=== PATIENT | female | born 1990 | race Caucasian/White ===

== ENCOUNTER → 2018-11-11 | Outpatient (CLI) | payer BC ==
[~2018-11-11] MED LIST: LIDOCAINE 1% PF 30 ML VIAL. ONE
[2018-11-11 16:01] LABS: CSF PROTEIN 19.1 mg/dL (15.0-45.0)
[2018-11-11 16:22] LABS: CSF CLARITY CLEAR; CSF COLOR COLORLESS; CSF RBC COUNT 4; CSF WBC COUNT 4
[2018-11-11 16:23] LABS: CSF MON % 100 %; CSF OTHER % 0 %; CSF PMN % 0 %
== END | disposition home or self-care (01) ==
LOC: SURG 14:10
PROVIDERS: ATTEND Anesthesiology
DX: H47.10 Unspecified papilledema (principal); M19.90 Unspecified osteoarthritis, unspecified site; F32.9 Major depressive disorder, single episode, unspecified; R51 Headache; Z79.899 Other long term (current) drug therapy
CPT/HCPCS: 62272; 77003; 82945; 84157; 87071; 87075; 89051; J2001; 77002